=== PATIENT | male | born 1995 | race Caucasian/White ===

== ENCOUNTER 2017-06-20 11:09 | Emergency (ER) | payer MEDICAID, OTHER ==
[2017-06-20] MEDS: NEOMYC/POLYMYX/BACIT 30 GM OINT TOP (11:30)
[2017-06-20] MEDS: morphine 4 MG/ML VIAL IM (12:38)
[2017-06-20] MEDS: DIPHTH/TET/ACEL PERTUSS (ADULT) 0.5 ML VIAL IM* (12:41)
== END 2017-06-20 13:15 | disposition home or self-care (01) ==
LOC: E/R 11:09
DX: S05.11XA Contusion of eyeball and orbital tissues, right eye, initial encounter (principal); S83.91XA Sprain of unspecified site of right knee, initial encounter; S93.401A Sprain of unspecified ligament of right ankle, initial encounter; R40.2142 Coma scale, eyes open, spontaneous, at arrival to emergency department; R40.2252 Coma scale, best verbal response, oriented, at arrival to emergency department; R40.2362 Coma scale, best motor response, obeys commands, at arrival to emergency department; Y04.2XXA Assault by strike against or bumped into by another person, initial encounter; Z23 Encounter for immunization
CPT/HCPCS: 70450; 70486; 71045; 73130-RT; 73562; 73610-RT; 90471; 90715; 96372; 99285-25